=== PATIENT | female | born 1955 | race African-American/Black ===

== ENCOUNTER 2016-08-25 10:21 | Inpatient (IN) | payer BC, OTHER ==
[~2016-08-25] VITALS: Ht 165.1 cm; Wt 99.5 kg
[2016-08-25 10:33] VITALS: BP 130/79; PULSE 95; RESP 18; TEMP 98.1; O2SAT 100
[2016-08-25] MEDS ORDERED: HYDROmorphone HCL PF 1 MG/ML VIAL IV PUSH ONE ×2 (10:45→14:30)
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
[2016-08-25 11:55] VITALS: BP 123/78; PULSE 96; RESP 15; O2SAT 98
[2016-08-25] MEDS ORDERED: PROPOFOL 200 MG/20 ML AMP IV ONE ×2 (12:00→12:15)
[2016-08-25] MEDS ORDERED: PHENYLEPH/NS 1000 MCG/10 ML SYR IV ONE (12:00)
[2016-08-25] MEDS ORDERED: NEOSTIGMINE 3 MG/3 ML SYR IV ONE (12:00)
[2016-08-25] MEDS ORDERED: MORPHINE SULFATE 4 MG/ML INJ IV ONE (12:00)
[2016-08-25] MEDS ORDERED: ONDANSETRON HCL 4 MG/2 ML VIAL IV PUSH ONE (12:00)
[2016-08-25] MEDS ORDERED: LACTATED RINGER'S 1000 ML INJ 1,000 ML IV ONE (12:00)
[2016-08-25] MEDS ORDERED: fentaNYL CITRATE 250 MCG/5 ML AMP IV ONE (12:00)
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
[2016-08-25 12:07] LABS: AUTOMATED NEUTROPHIL # 10.5 TH/MM3 (1.8-7.7); BASOPHIL % 0.2 % (0.0-2.0); EOSINOPHIL % 0.3 % (0.0-4.0); HEMATOCRIT 34.7 % (35.0-46.0); HEMO FLAGS DIFF FINAL; LYMPH % 10.7 % (9.0-44.0); LYMPHOCYTE # 1.3 TH/MM3 (1.0-4.8); MEAN CELL VOLUME 90.7 FL (80.0-100.0); MEAN CORPUSCULAR HEMOGLOBIN 28.4 PG (27.0-34.0); MEAN CORPUSCULAR HGB CONC 31.2 % (32.0-36.0); MONO % 4.5 % (0.0-8.0); NEUT % 84.3 % (16.0-70.0); PLATELET COUNT 224 TH/MM3 (150-450); RED BLOOD COUNT 3.82 MIL/MM3 (4.00-5.30); RED CELL DISTRIBUTION WIDTH 13.9 % (11.6-17.2); WHITE BLOOD COUNT 12.5 TH/MM3 (4.0-11.0)
[2016-08-25] MEDS ORDERED: TETANUS/DIPHTHERIA TOXOID ADULT 0.5 ML VIAL IM ONE (12:15)
[2016-08-25 12:28] LABS: BICARBONATE 23.5 MEQ/L (21.0-32.0)
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
[2016-08-25] MEDS ORDERED: IOHEXOL 350 MG/ML 10 ML VIAL (for RAD DIAG) IV ONE (13:51)
[2016-08-25] MEDS ORDERED: SODIUM CHLORIDE 0.9% FLUSH 10 ML FLUSH IV FLUSH PRN (14:15)
[2016-08-25] MEDS ORDERED: CHLORHEXIDINE GLUCONATE 2 % 1 PACK (2 CLOTHS) TOP PRN (14:15)
[2016-08-25] MEDS ORDERED: MISCELLANEOUS NURSING INFORMATION XX SCH (14:15)
[2016-08-25] MEDS ORDERED: HYDROmorphone HCL PF 1 MG/ML VIAL IVP PRN ×2 (14:15)
[2016-08-25] MEDS ORDERED: ONDANSETRON HCL 4 MG/2 ML VIAL IV PRN (14:15)
[2016-08-25] MEDS ORDERED: LACTATED RINGER'S 1000 ML INJ 1,000 ML IV SCH (14:30)
--- NOTE | 2016-08-25 14:44 | RADRPT ---
EXAM DATE/TIME: 08/25/2016 14:17 [facility] COMPARISON: No previous studies available for comparison. INDICATIONS : Ankle pain. Fracture. RADIATION DOSE: 22.01 CTDIvol (mGy) MEDICAL HISTORY : None SURGICAL HISTORY : None. ENCOUNTER: Initial ACUITY: 1 day PAIN SCALE: 10/10 LOCATION: Right ankle. TECHNIQUE: Volumetric scanning of the ankle was performed. Using automated exposure control and adjustment of the mA and/or kV according to patient size, radiation dose was kept as low as reasonabl y achievable to obtain optimal diagnostic quality images. FINDINGS: CT scan right ankle was performed without contrast. There is an oblique fracture involv ing the base of the medial malleolus. The fracture is widened along the talar surface. At one point the separation is 13 mm across. There is widening of the tibiotalar joint laterally. There is a tra nsverse fracture of the distal fibula. That fracture is slightly laterally angulated. The distal tib /fib ligaments are still grossly intact. The calcaneus and talus are unremarkable. There is diffuse soft-tissue swelling. What is see of the Achilles is intact. CONCLUSION: 1. Fractures of both the distal tibia and the fibula. No underlying lytic lesions identified. 2. The medial malleolar fracture is by at least 13 mm. Justin Guillory MD on August 25, 2016 at 14:40 Board Certified Radiologist. This report was verified electronically.
[2016-08-25 15:00] VITALS: BP 115/59; PULSE 111; RESP 15; O2SAT 99
[2016-08-25] MEDS ORDERED: OMEP20CA2 (15:48)
[2016-08-25] MEDS ORDERED: TRAM50TA PO (15:48)
[2016-08-25] MEDS ORDERED: [UNRECOGNIZED DRUG - CODE] (15:48)
[2016-08-25] MEDS ORDERED: MONT10TA2 PO (15:48)
[2016-08-25] MEDS ORDERED: ZYRT10CA PO (15:48)
[2016-08-25] MEDS ORDERED: FURO1TAB60 PO (15:48)
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
[2016-08-25 18:00] VITALS: BP 115/68; PULSE 104; RESP 17; O2SAT 96
[2016-08-25] MEDS ORDERED: ACETAMINOPHEN/HYDROcodone 325 MG/5 MG TAB PO PRN (19:30)
[2016-08-25] MEDS ORDERED: MISCELLANEOUS PHARMACY INFORMATION XX ONE (19:30)
[2016-08-25] MEDS ORDERED: NORC5TAB PO (19:30)
[2016-08-25] MEDS ORDERED: ENOX40P SQ (19:30)
[2016-08-25] MEDS ORDERED: NALOXONE HCL 0.4 MG/ML AMP IV PRN (19:30)
[2016-08-25] MEDS ORDERED: SODIUM CHLORIDE 0.9% FLUSH 5 ML FLUSH IVF PRN (19:30)
[2016-08-25] MEDS ORDERED: MAGNESIUM HYDROXIDE SUSP 30 ML CUP PO PRN (19:30)
[2016-08-25] MEDS ORDERED: MISCELLANEOUS NURSING INFORMATION XX PRN (19:30)
[2016-08-25] MEDS ORDERED: ONDANSETRON HCL 4 MG/2 ML VIAL IVP PRN (19:30)
[2016-08-25] MEDS ORDERED: Post-op Orders (for Pharmacy) MISC XX ONE (19:30)
[2016-08-25] MEDS ORDERED: ASPI325T PO (19:30)
[2016-08-25] MEDS ORDERED: ceFAZolin INJ 1,000 MG VIAL IV ONE (19:40)
[2016-08-25] MEDS ORDERED: VANCOMYCIN HCL 1000 MG VIAL ONE (19:46)
[2016-08-25] MEDS ORDERED: BUPIVACAINE HCL PF 0.5% 30 ML VIAL INFIL ONE (19:47)
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
--- NOTE | 2016-08-25 20:45 | PD.OP ---
cc: Timo Berumen MD Operative Report Date of Surgery: Aug 25, 2016 Preoperative Diagnosis: Right ankle distal tibial pilon fracture with fibular fracture. Postoperative Diagnosis: Same Procedure: Right ankle open reduction and internal fixation of intra-articular distal tibial pilon fracture with open reduction and internal fixation of distal fibular fracture Anesthesia: Gen. Surgeon: Timo Berumen Nut Process Helper(s): ROSENDO Garcia The surgical procedure was assisted by my Advanced Registered Nurse Practitioner. My ELECTRIC METER READER presence was necessary throughout this case for the manipulation and positioning of the surgical extremity. My ELECTRIC METER READER was assisting me throughout the duration of this procedure. The skill set of an Advance Registered Nurse Practitioner was medically necessary to complete this procedure. During the surgical case, the surgical garment fitter was working at the back table and the Advance Registered Nurse Practitioner was directly assisting me. Operation and Findings: Tourniquet time: 0 minutes at 250 mmHg of pressure Estimated blood loss: 120 cc The patient received intravenous vancomycin and Ancef. After the appropriate anesthesia was administered, the patient's leg was prepped and draped in the usual sterile fashion. We made standard incision over the medial aspect of the ankle. We dissected down to the fracture. The fracture was significantly displaced. We open the fracture up so we can irrigate within the joint to remove small pieces of comminuted articular cartilage. We then anatomically reduced the fracture which was a vertical fracture through the distal tibia pilon. The ankle mortise was now anatomic as was the articular surface. We held this provisionally reduced. We applied a Synthes precontoured T plate which allowed us to obtain 3 screws unicortical into the medial malleolus. Prior to the screws we placed a lag screw going across the distal tibia which held the fracture in a buttress fashion. After the medial malleolar screws we secured the remaining plate up proximally with locking screws. With the reduction of the distal tibia, now the fibula was anatomic. We made a standard incision over the lateral aspect of the ankle. We then dissected through the deep fascia down to the fracture site. The edges of the fracture were identified. Hematoma was evacuated and the fracture was irrigated. The fracture was anatomically reduced with a reduction clamp, verified both visually and via fluoroscopy. We then applied a pre-contoured Synthes lateral malleolus plate over the fracture. We initially secured the plate using a non-locking screw in the oblong screw hole. This gave nice compression of the plate to the bone. We then secured the fracture with multiple distal locking screws and a proximal nonlocking and a locking screw. We took final fluoroscopic imaging of the ankle, including an AP, lateral, and mortise view. The fracture and the mortise were anatomic. We found no intra- articular penetration of the screws. The patient had full range of motion of the ankle with no crepitus. No instability was noted. We irrigated the incisions thoroughly. We then closed the deep fascia as much as possible with 0 Vicryl both medially and laterally. Skin was closed with 2-0 Vicryl followed by 3-0 nylon. The leg was dressed and a splint was applied. The postoperative plan is for nonweightbearing to the extremity, and DVT prophylaxis. Timo Berumen MD Aug 25, 2016 20:44
[2016-08-25] MEDS: DEXT 5%-NACL 0.45% 1000 ML INJ 1,000 ML IV SCH ×2 (20:57→23:00)
[2016-08-25] MEDS: SODIUM CHLORIDE 0.9% FLUSH 5 ML FLUSH IVF SCH (20:58)
[2016-08-25] MEDS: FAMOTIDINE 20 MG TAB PO SCH (21:00)
[2016-08-25] MEDS ORDERED: FAMOTIDINE 20 MG/2 ML VIAL ONE (21:00)
[2016-08-25] MEDS ORDERED: MAGNESIUM HYDROXIDE SUSP 30 ML CUP PO SCH (21:00)
[2016-08-25] MEDS ORDERED: DOCUSATE SODIUM 100 MG/10 ML UDC PO SCH (21:00)
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
[2016-08-25] MEDS ORDERED: LORazepam 2 MG/ML VIAL ONE (22:07)
[2016-08-25] MEDS ORDERED: LORazepam 2 MG/ML VIAL IV SCH (22:07)
--- NOTE | 2016-08-25 22:34 | EKG ---
Date Performed: 08/25/2016 Time Performed: 15:31:25 PTAGE: 61 years EKG: SINUS TACHYCARDIA POSSIBLE ANTERIOR MYOCARDIAL INFARCTION ABNORMAL RHYTHM ECG NO PREVIOUS TRACING DOCTOR: Jay Jay Conklin Interpretating Date/Time 08/25/2016 22:32:34
[2016-08-25] MEDS ORDERED: LORazepam 2 MG/ML VIAL IV PRN (22:45)
[2016-08-25] MEDS: DOCUSATE SODIUM 50 MG/SENNA 8.6 MG TAB PO SCH (22:55)
[2016-08-25] MEDS: DOCUSATE SODIUM 100 MG CAP PO SCH (22:55)
[2016-08-25] MEDS: MORPHINE SULFATE 4 MG/ML INJ IV PUSH PRN (22:56)
[2016-08-25 22:59] VITALS: BP 98/58; PULSE 92; RESP 18; TEMP 97.8; O2SAT 99
[2016-08-26] MEDS: ACETAMINOPHEN/HYDROcodone 325 MG/5 MG TAB PO PRN ×4 (02:25→23:03)
[2016-08-26 04:00] VITALS: BP 102/56; PULSE 107; RESP 22; TEMP 97.5; O2SAT 97
[2016-08-26] MEDS ORDERED: CHLORHEXIDINE GLUCONATE 2 % 1 PACK (2 CLOTHS) TOP SCH (04:00)
[2016-08-26 07:18] LABS: AUTOMATED NEUTROPHIL # 7.3 TH/MM3 (1.8-7.7); BASOPHIL % 0.2 % (0.0-2.0); EOSINOPHIL # 0.1 TH/MM3 (0-0.4); EOSINOPHIL % 1.2 % (0.0-4.0); HEMATOCRIT 26.9 % (35.0-46.0); HEMO FLAGS DIFF FINAL; LYMPHOCYTE # 1.8 TH/MM3 (1.0-4.8); MEAN CELL VOLUME 91.8 FL (80.0-100.0); MEAN CORPUSCULAR HEMOGLOBIN 29.4 PG (27.0-34.0); MONO % 7.3 % (0.0-8.0); NEUT % 73.3 % (16.0-70.0); PLATELET COUNT 180 TH/MM3 (150-450); RED BLOOD COUNT 2.93 MIL/MM3 (4.00-5.30); WHITE BLOOD COUNT 9.9 TH/MM3 (4.0-11.0)
[2016-08-26 07:34] LABS: BICARBONATE 21.9 MEQ/L (21.0-32.0); POTASSIUM 3.8 MEQ/L (3.5-5.1)
[2016-08-26 08:00] VITALS: BP 116/64; PULSE 93; RESP 20; TEMP 99; O2SAT 97
[2016-08-26] MEDS: MORPHINE SULFATE 4 MG/ML INJ IV PUSH PRN ×4 (08:07→21:14)
[2016-08-26] MEDS: DOCUSATE SODIUM 50 MG/SENNA 8.6 MG TAB PO SCH ×2 (08:46→21:15)
[2016-08-26] MEDS: MULTIVITAMINS/MINERALS THERAPEUTIC TAB PO SCH (08:46)
[2016-08-26] MEDS: DOCUSATE SODIUM 100 MG CAP PO SCH (08:46)
[2016-08-26] MEDS: FAMOTIDINE 20 MG TAB PO SCH ×2 (08:46→21:15)
[2016-08-26] MEDS: SODIUM CHLORIDE 0.9% FLUSH 5 ML FLUSH IVF SCH (08:48)
[2016-08-26 12:00] VITALS: BP 103/62; PULSE 92; RESP 20; TEMP 98.4; O2SAT 99
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
[2016-08-26] MEDS: ALPRAZolam 0.25 MG TAB PO PRN ×2 (12:55→21:17)
[2016-08-26] MEDS ORDERED: WALKER WHEELS/F1 MIS (12:57)
[2016-08-26] MEDS ORDERED: SENN1TAB PO (12:57)
[2016-08-26] MEDS ORDERED: WHEEMIS3 (12:57)
--- NOTE | 2016-08-26 15:42 | PD.ORT.PN ---
Subjective Post Op Day #: 1 Subjective Remarks Patient reports moderate pain to the right ankle. Patient also c/o some mild right wrist discomfort. Objective Vitals Vital Signs Date Time Temp Pulse Resp B/P Pulse Ox O2 Delivery O2 Flow Rate FiO2 08/26/16 12:00 98.4 92 20 103/62 99 08/26/16 08:00 99.0 93 20 116/64 97 08/26/16 04:00 97.5 107 22 102/56 97 08/25/16 23:35 Room Air 08/25/16 22:59 97.8 92 18 98/58 99 08/25/16 22:40 89 16 97 Nasal Cannula 4 08/25/16 22:15 89 16 147/96 99 Nasal Cannula 4 08/25/16 22:00 89 16 147/96 99 Nasal Cannula 4 08/25/16 21:45 84 16 140/88 98 Nasal Cannula 4 08/25/16 21:30 93 18 124/88 98 Nasal Cannula 4 08/25/16 21:20 98.2 93 20 147/90 97 Nasal Cannula 4 08/25/16 18:00 104 17 115/68 96 Room Air I/O 08/25/16 08/25/16 08/25/16 08/26/16 08/26/16 08/26/16 07:00 15:00 23:00 07:00 15:00 23:00 Intake Total 1600 ml 1495 ml 480 ml Output Total 300 ml Balance 1300 ml 1495 ml 480 ml Intake Oral 780 ml 480 ml IV Total 200 ml 715 ml Other 1400 ml Output Urine Total 250 ml Estimated Blood Loss 50 ml # Voids 1 2 3 # Bowel Movements 0 Result Diagram: 08/26/16 0657 08/26/16 0657 Procedures Right ankle open reduction and internal fixation of intra-articular distal tibial pilon fracture with open reduction and internal fixation of distal fibular fracture Right wrist contusion Objective Remarks The patient's dressing and splint are intact, clean, and dry. Patient moves all toes. + SILT x 5. BCR X 5. Right wrist tenderness. 2 + radial pulse. Assessment & Plan Ortho Post Op Day #: 1 Problem List: Assessment and Plan POD #1: Right ankle open reduction and internal fixation of intra-articular distal tibial pilon fracture with open reduction and internal fixation of distal fibular fracture Right wrist contusion 1. NWB on RLE 2. Ice to the right ankle PRN 3. Apply wrist controlled splint to right wrist. 4. Anticipatory discharge home with home health on Monday. 5. Lovenox for DVT prophylaxis. Toney Linton Aug 26, 2016 15:42
[2016-08-26 16:00] VITALS: BP 107/68; PULSE 89; RESP 20; TEMP 99.2; O2SAT 99
[2016-08-26] MEDS: ENOXAPARIN SODIUM 40 MG/0.4 ML SYRINGE SQ SCH (21:15)
[2016-08-26 21:25] VITALS: BP 123/82; PULSE 92; RESP 22; TEMP 99.3; O2SAT 96
[2016-08-27 00:17] VITALS: BP 112/76; PULSE 93; RESP 22; TEMP 98.6; O2SAT 94
[2016-08-27] MEDS: MORPHINE SULFATE 4 MG/ML INJ IV PUSH PRN ×4 (02:17→20:14)
[2016-08-27] MEDS: diphenhydrAMINE HCL 25 MG CAP PO PRN ×2 (02:57→20:13)
[2016-08-27 04:08] VITALS: BP 114/72; PULSE 93; RESP 22; TEMP 98.2; O2SAT 99
[2016-08-27] MEDS: ACETAMINOPHEN/HYDROcodone 325 MG/5 MG TAB PO PRN ×4 (05:20→23:47)
[2016-08-27 05:32] LABS: AUTOMATED NEUTROPHIL # 6.5 TH/MM3 (1.8-7.7); BASOPHIL % 0.4 % (0.0-2.0); EOSINOPHIL # 0.2 TH/MM3 (0-0.4); EOSINOPHIL % 2.6 % (0.0-4.0); HEMO FLAGS DIFF FINAL; LYMPH % 20.2 % (9.0-44.0); LYMPHOCYTE # 1.9 TH/MM3 (1.0-4.8); MEAN CELL VOLUME 89.5 FL (80.0-100.0); MEAN CORPUSCULAR HEMOGLOBIN 29.3 PG (27.0-34.0); MEAN CORPUSCULAR HGB CONC 32.7 % (32.0-36.0); MONO % 6.6 % (0.0-8.0); NEUT % 70.2 % (16.0-70.0); PLATELET COUNT 208 TH/MM3 (150-450); RED BLOOD COUNT 3.13 MIL/MM3 (4.00-5.30); RED CELL DISTRIBUTION WIDTH 13.8 % (11.6-17.2); WHITE BLOOD COUNT 9.2 TH/MM3 (4.0-11.0)
[2016-08-27 05:54] LABS: ALT (GPT) 36 U/L (10-53); ANION GAP 8 MEQ/L (5-15); AST (GOT) 51 U/L (15-37); BICARBONATE 24.9 MEQ/L (21.0-32.0); BLOOD UREA NITROGEN 6 MG/DL (7-18); CHLORIDE 112 MEQ/L (98-107); GLOMERULAR FILTRATION RATE 149 ML/MIN (>89); MAGNESIUM 2.2 MG/DL (1.5-2.5); POTASSIUM 3.5 MEQ/L (3.5-5.1); SODIUM (NA) 145 MEQ/L (136-145)
[2016-08-27 05:56] LABS: ALKALINE PHOSPHATASE 99 U/L (45-117); TOTAL BILIRUBIN ADULT 0.3 MG/DL (0.2-1.0)
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
[2016-08-27 07:55] VITALS: BP 119/76; PULSE 94; RESP 18; TEMP 98.5; O2SAT 97
[2016-08-27] MEDS: ALPRAZolam 0.25 MG TAB PO PRN ×2 (08:29→19:13)
[2016-08-27] MEDS: MULTIVITAMINS/MINERALS THERAPEUTIC TAB PO SCH (08:32)
[2016-08-27] MEDS: DOCUSATE SODIUM 50 MG/SENNA 8.6 MG TAB PO SCH ×2 (08:32→20:08)
[2016-08-27] MEDS: POLYETHYLENE GLYCOL 17 GM PKG PO SCH (08:32)
[2016-08-27] MEDS: LACTULOSE SYRUP 20 GM/30 ML CUP PO SCH (08:32)
[2016-08-27] MEDS: FAMOTIDINE 20 MG TAB PO SCH ×2 (08:32→20:08)
[2016-08-27] MEDS: SODIUM CHLORIDE 0.9% FLUSH 5 ML FLUSH IVF SCH ×2 (09:00→20:08)
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
[2016-08-27] MEDS ORDERED: INFLUENZA VIRUS VACCINE (QUADRIVALENT) 0.5 ML SYR IM ONE (10:00)
[2016-08-27 11:55] VITALS: BP 107/76; PULSE 90; RESP 16; TEMP 98.4; O2SAT 98
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
[2016-08-27 16:42] VITALS: BP 131/79; PULSE 97; RESP 16; TEMP 99.2; O2SAT 100
[2016-08-27] MEDS: ENOXAPARIN SODIUM 40 MG/0.4 ML SYRINGE SQ SCH (20:08)
[2016-08-27 20:21] VITALS: BP 124/74; PULSE 96; RESP 20; TEMP 98.6; O2SAT 99
[2016-08-28] VITALS: BP 120/62; PULSE 97; RESP 16; TEMP 99.6; O2SAT 98
[2016-08-28] MEDS: ALPRAZolam 0.25 MG TAB PO PRN ×2 (05:05→17:01)
[2016-08-28] MEDS: ACETAMINOPHEN/HYDROcodone 325 MG/5 MG TAB PO PRN ×3 (05:05→23:00)
[2016-08-28] MEDS: LACTULOSE SYRUP 20 GM/30 ML CUP PO SCH (07:39)
[2016-08-28] MEDS: POLYETHYLENE GLYCOL 17 GM PKG PO SCH (07:39)
[2016-08-28] MEDS: MULTIVITAMINS/MINERALS THERAPEUTIC TAB PO SCH (07:40)
[2016-08-28] MEDS: MORPHINE SULFATE 4 MG/ML INJ IV PUSH PRN ×3 (07:40→20:52)
[2016-08-28] MEDS: DOCUSATE SODIUM 50 MG/SENNA 8.6 MG TAB PO SCH ×2 (07:41→20:50)
[2016-08-28] MEDS: FAMOTIDINE 20 MG TAB PO SCH ×2 (07:47→20:50)
[2016-08-28 08:00] VITALS: BP 121/79; PULSE 85; RESP 17; TEMP 97.1; O2SAT 97
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
[2016-08-28] MEDS: SODIUM CHLORIDE 0.9% FLUSH 5 ML FLUSH IVF SCH ×2 (09:00→20:50)
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
[2016-08-28 11:47] VITALS: BP 117/77; PULSE 85; RESP 16; TEMP 97.1; O2SAT 98
[2016-08-28 16:15] VITALS: BP 110/67; PULSE 90; RESP 16; TEMP 98.1; O2SAT 98
[2016-08-28 20:00] VITALS: BP 119/68; PULSE 100; RESP 18; TEMP 97.7; O2SAT 99
[2016-08-28] MEDS: ENOXAPARIN SODIUM 40 MG/0.4 ML SYRINGE SQ SCH (20:51)
[2016-08-28] MEDS: diphenhydrAMINE HCL 25 MG CAP PO PRN (23:00)
[2016-08-29] VITALS: BP 115/75; PULSE 104; RESP 20; TEMP 98.6; O2SAT 99
[2016-08-29] MEDS: ALPRAZolam 0.25 MG TAB PO PRN ×2 (01:43→10:15)
[2016-08-29 04:00] VITALS: BP 99/69; PULSE 79; RESP 20; TEMP 98.5; O2SAT 97
[2016-08-29] MEDS: ACETAMINOPHEN/HYDROcodone 325 MG/5 MG TAB PO PRN ×3 (05:50→18:25)
[2016-08-29 07:53] VITALS: BP 109/73; PULSE 80; RESP 16; TEMP 97.4; O2SAT 99
[2016-08-29] MEDS: LACTULOSE SYRUP 20 GM/30 ML CUP PO SCH (08:35)
[2016-08-29] MEDS: FAMOTIDINE 20 MG TAB PO SCH (08:35)
[2016-08-29] MEDS: MULTIVITAMINS/MINERALS THERAPEUTIC TAB PO SCH (08:35)
[2016-08-29] MEDS: POLYETHYLENE GLYCOL 17 GM PKG PO SCH (08:35)
[2016-08-29] MEDS: DOCUSATE SODIUM 50 MG/SENNA 8.6 MG TAB PO SCH ×2 (08:35→20:57)
[2016-08-29] MEDS: MORPHINE SULFATE 4 MG/ML INJ IV PUSH PRN ×3 (08:36→20:57)
[2016-08-29] MEDS: SODIUM CHLORIDE 0.9% FLUSH 5 ML FLUSH IVF SCH ×2 (08:39→20:58)
[2016-08-29] MEDS ORDERED: PANTOPRAZOLE SOD 40 MG DELAYED RELEASE TAB PO ONE (12:00)
[2016-08-29 12:12] VITALS: BP 127/79; PULSE 86; RESP 16; TEMP 96.8; O2SAT 97
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
[2016-08-29 13:12] LABS: HEMATOCRIT 30.4 % (35.0-46.0); MEAN CELL VOLUME 90.2 FL (80.0-100.0); MEAN CORPUSCULAR HEMOGLOBIN 29.5 PG (27.0-34.0); MEAN CORPUSCULAR HGB CONC 32.7 % (32.0-36.0); PLATELET COUNT 239 TH/MM3 (150-450); RED BLOOD COUNT 3.37 MIL/MM3 (4.00-5.30); RED CELL DISTRIBUTION WIDTH 13.8 % (11.6-17.2); REVIEW FLAG FINAL; WHITE BLOOD COUNT 9.3 TH/MM3 (4.0-11.0)
[2016-08-29] MEDS ORDERED: PANT40TA3 PO (14:31)
[2016-08-29] MEDS ORDERED: MELO-1 PO (14:31)
[2016-08-29] MEDS ORDERED: HYOS0.37 PO (14:31)
[2016-08-29] MEDS ORDERED: LETR2.5T PO (14:35)
[2016-08-29 16:50] VITALS: BP 115/79; PULSE 93; RESP 16; TEMP 98.3; O2SAT 98
[2016-08-29 20:06] VITALS: BP 96/56; PULSE 54; RESP 19; TEMP 97.9; O2SAT 96
[2016-08-29] MEDS: ENOXAPARIN SODIUM 40 MG/0.4 ML SYRINGE SQ SCH (20:58)
[2016-08-29] MEDS: diphenhydrAMINE HCL 25 MG CAP PO PRN (21:06)
[2016-08-30 00:12] VITALS: BP 107/57; PULSE 55; RESP 18; TEMP 97.8; O2SAT 98
[2016-08-30] MEDS: ACETAMINOPHEN/HYDROcodone 325 MG/5 MG TAB PO PRN (04:36)
[2016-08-30] MEDS: ALPRAZolam 0.25 MG TAB PO PRN ×2 (05:18→08:51)
[2016-08-30 07:20] LABS: AUTOMATED NEUTROPHIL # 6.6 TH/MM3 (1.8-7.7); BASOPHIL % 0.3 % (0.0-2.0); EOSINOPHIL # 0.3 TH/MM3 (0-0.4); EOSINOPHIL % 3.1 % (0.0-4.0); HEMATOCRIT 28.6 % (35.0-46.0); HEMO FLAGS DIFF FINAL; LYMPH % 18.4 % (9.0-44.0); LYMPHOCYTE # 1.7 TH/MM3 (1.0-4.8); MEAN CELL VOLUME 90.2 FL (80.0-100.0); MEAN CORPUSCULAR HGB CONC 32.2 % (32.0-36.0); MONO % 5.1 % (0.0-8.0); NEUT % 73.1 % (16.0-70.0); PLATELET COUNT 227 TH/MM3 (150-450); RED BLOOD COUNT 3.17 MIL/MM3 (4.00-5.30); RED CELL DISTRIBUTION WIDTH 13.6 % (11.6-17.2); WHITE BLOOD COUNT 9.1 TH/MM3 (4.0-11.0)
[2016-08-30 07:48] LABS: ALKALINE PHOSPHATASE 98 U/L (45-117); ALT (GPT) 24 U/L (10-53); ANION GAP 8 MEQ/L (5-15); AST (GOT) 24 U/L (15-37); BICARBONATE 26.5 MEQ/L (21.0-32.0); BLOOD UREA NITROGEN 11 MG/DL (7-18); CHLORIDE 107 MEQ/L (98-107); GLOMERULAR FILTRATION RATE 119 ML/MIN (>89); POTASSIUM 3.8 MEQ/L (3.5-5.1); SODIUM (NA) 141 MEQ/L (136-145); TOTAL BILIRUBIN ADULT 0.3 MG/DL (0.2-1.0)
[2016-08-30 08:00] VITALS: BP 104/64; PULSE 84; RESP 18; TEMP 98; O2SAT 99
[2016-08-30] MEDS: DOCUSATE SODIUM 50 MG/SENNA 8.6 MG TAB PO SCH (08:51)
[2016-08-30] MEDS: POLYETHYLENE GLYCOL 17 GM PKG PO SCH (08:51)
[2016-08-30] MEDS: MULTIVITAMINS/MINERALS THERAPEUTIC TAB PO SCH (08:52)
[2016-08-30] MEDS: LACTULOSE SYRUP 20 GM/30 ML CUP PO SCH (08:52)
[2016-08-30] MEDS: MORPHINE SULFATE 4 MG/ML INJ IV PUSH PRN (08:53)
[2016-08-30] MEDS: SODIUM CHLORIDE 0.9% FLUSH 5 ML FLUSH IVF SCH (08:57)
[2016-08-30] MEDS ORDERED: ALPR.25 PO (11:14)
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
[2016-08-30 12:00] VITALS: BP 110/74; PULSE 82; RESP 18; TEMP 99; O2SAT 98
== END 2016-08-30 13:58 | disposition home or self-care (01) | DRG 493 ==
LOC: NEPC 10:21 → NEDA 14:05 → N06B 22:45
PROVIDERS: ADMIT Surgery Trauma Surgery; ATTEND Surgery Trauma Surgery
PROC: 0QSJ04Z Reposition Right Fibula with Internal Fixation Device, Open Approach (ICD-10-PCS; 2016-08-25)
PROC: 0QSJXZZ Reposition Right Fibula, External Approach (ICD-10-PCS; 2016-08-25)
PROC: 0QSGXZZ Reposition Right Tibia, External Approach (ICD-10-PCS; 2016-08-25)
PROC: 0QSG04Z Reposition Right Tibia with Internal Fixation Device, Open Approach (ICD-10-PCS; principal; 2016-08-25 19:14)
DX: S82.851A Displaced trimalleolar fracture of right lower leg, initial encounter for closed fracture (principal); S27.321A Contusion of lung, unilateral, initial encounter; S60.211A Contusion of right wrist, initial encounter; K21.9 Gastro-esophageal reflux disease without esophagitis; J45.909 Unspecified asthma, uncomplicated; R91.1 Solitary pulmonary nodule; E04.1 Nontoxic single thyroid nodule; K76.9 Liver disease, unspecified; F41.9 Anxiety disorder, unspecified; V43.62XA Car passenger injured in collision with other type car in traffic accident, initial encounter; Y92.410 Unspecified street and highway as the place of occurrence of the external cause
CPT/HCPCS: 27840; 70450; 71010; 71260; 72125; 72170; 73030; 73060; 73110; 73600; 73620; 73700; 74177; 76000; 80048; 80053; 83735; 85025; 85027; 90471; 90714; 93005; 94150; 96374; 96375; 99152; 99153; C1713; J0690; J1170; J1650; J2060; J2270; J2370; J2405; J2710; J3010; J3370; J7120; L3908; Q9967